=== PATIENT | female | born 1960 | race Asian ===

== ENCOUNTER 2017-03-19 00:45 | Observation (INO) | payer OTHER ==
[2017-03-19] MEDS ORDERED: NS 1,000 ML IV ONE (00:49)
[2017-03-19] MEDS ORDERED: ASPIRIN 81 MG CHEWABLE TAB PO ONE ×2 (00:49→01:10)
--- NOTE | 2017-03-19 01:02 | EDPHY ---
H & P HPI/ROS: HPI CHIEF COMPLAINT: Headache, dizziness, chest pain HISTORY OF PRESENT ILLNESS: This patient very pleasant 56-year-old female, she presents emergency room at 1 o'clock in the morning with chest discomfort. She states that today she had a very unusual day for her. She does suffer from migraine headaches around 1:00 p.m. she developed a headache frontal and bitemporal pulsating in nature very severe with associated dizziness room spinning. This is unlike her normal migraines. She had to leave work and go home and sleep. She woke up around 330 she went back to work and felt okay still have lingering headache. Dizziness resolved. Around 530 she went shopping with her son became very dizzy again with room spinning sensation with associated nausea. She had to go home. She tried to lay down she woke up around 930PM hungry and decided to eat something. She developed chest discomfort in the center of her chest felt like indigestion. Tells me felt like something was stuck in her chest. It is since resolved. It lasted for 30 minutes. She tells me she had belching after this. After returning home I decided come to the emergency room due to chest discomfort. With associated nausea without vomiting. She denies jaw pain or neck pain. Denies back pain, denies arm heaviness numbness or tingling. He still has a bifrontal temporal headache. Now improved. She tells me chest pain is resolved, dizziness has resolved. Denies shortness of breath or pleuritic pain. She denies any history of cardiac evaluation or previous workup. No history of coronary artery disease or stroke. Past Medical History: Migraine headaches, positional vertigo, hypertension Past Surgical History: No recent surgical history Social History: Denies daily use of drugs alcohol tobacco products, lives locally, employed Family History: Unknown Family history as she is adopted (son bicuspid Aortic valve) ROS REVIEW OF SYSTEMS: A comprehensive 10 point review of systems is otherwise negative aside from elements mentioned in the history of present illness. Exam Constitutional appears well nontoxic, triage nursing summary reviewed, vital signs reviewed, awake/alert. Eyes normal conjunctivae and sclera, EOMI, PERRLA. HENT normal inspection, atraumatic, moist mucus membranes, no epistaxis, neck supple/ no meningismus, no raccoon eyes. Respiratory clear to auscultation bilaterally, normal breath sounds, no respiratory distress, no wheezing. Cardiovascular rate normal, regular rhythm, no murmur, no edema, distal pulses normal. Gastrointestinal soft, non-tender, no rebound, no guarding, normal bowel sounds, no distension, no pulsatile mass. Genitourinary no CVA tenderness. Musculoskeletal no midline vertebral tenderness, full range of motion, no calf swelling, no tenderness of extremities, no meningismus, good pulses, neurovascularly intact. Skin pink, warm, & dry, no rash, skin atraumatic. Neurologic normal neurological exam, awake, alert and oriented x 3, AAOx3, moves all 4 extremities equally, motor intact, sensory intact, CN II-XII intact , normal cerebellar, normal vision, normal speech. Psychiatric normal mood/affect. Heme/Lymph/Immune no lymphadenopathy. 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 IV hydration. Re-evaluation: EKG time of EKG 1:19 a.m. sinus rhythm rate of 64 I do not appreciate acute ischemic change on this EKG. CT scan of the head without IV contrast. 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 The study was read by Dr. Levin I viewed the images myself on the PACS system. ED x-ray chest one view: Negative for acute cardiopulmonary disease. EKG interpretation by me on record in [employer] system. Impression time of EKG 3:22 a.m. this is a repeat EKG sinus rhythm rate of 62 T-wave flattening anterior leads. Otherwise unremarkable EKG no ST [place]. [id number]: This patient be admitted to the hospitalist service Dr. Montana who agrees to admit this patient. Reason for admission chest pain. Everything is reassuring here in emergency room she has 2 EKGs that are not acutely ischemic negative troponin, negative D-dimer unremarkable chest x-ray his CT scan that shows a remote infarct. However due to her age, chest pain, unknown family history, hypertension feel it is reasonable to do serial enzymes her EKGs and stress test. Dr. Montana has agreed to admit this patient. Patient updated agrees with this plan. Source: Patient Constitutional: Initial Vital Signs Temperature (C) 36.7 C 03/19/17 00:47 Heart Rate 62 03/19/17 00:47 Respiratory Rate 20 03/19/17 00:47 Blood Pressure 154/98 H 03/19/17 00:47 O2 Sat (%) 98 03/19/17 00:47 O2 Delivery Mode Room Air Allergies/Adverse Reactions: No Known Allergies Allergy (Unverified 03/19/17 00:47) Home Medications: Medication Instructions Recorded Metoprolol Tartrate 03/19/17 Medical Decision Making - Data Points Laboratory Results: Laboratory Results 03/19/17 01:05 03/19/17 01:05 03/19/17 03/19/17 03/19/17 01:05 01:05 01:05 WBC 6.94 10^3/uL 10^3/uL (3.80-9.50) RBC 4.77 10^6/uL 10^6/uL (4.18-5.33) Hgb 14.2 g/dL g/dL (12.6-16.3) Hct 42.0 % % (38.0-47.0) MCV 88.1 fL fL (81.5-99.8) MCH 29.8 pg pg (27.9-34.1) MCHC 33.8 g/dL g/dL (32.4-36.7) RDW 12.7 % % (11.5-15.2) Plt Count 211 10^3/uL 10^3/uL (150-400) MPV 10.5 fL fL (8.7-11.7) Neut % (Auto) 47.0 % % (39.3-74.2) Lymph % (Auto) 39.3 % % (15.0-45.0) Dawson % (Auto) 7.5 % % (4.5-13.0) Eos % (Auto) 5.2 % % (0.6-7.6) Baso % (Auto) 0.7 % % (0.3-1.7) Nucleat RBC Rel Count 0.0 % % (0.0-0.2) Absolute Neuts (auto) 3.26 10^3/uL 10^3/uL (1.70-6.50) Absolute Lymphs (auto) 2.73 10^3/uL 10^3/uL (1.00-3.00) Absolute Monos (auto) 0.52 10^3/uL 10^3/uL (0.30-0.80) Absolute Eos (auto) 0.36 10^3/uL 10^3/uL (0.03-0.40) Absolute Basos (auto) 0.05 10^3/uL 10^3/uL (0.02-0.10) Absolute Nucleated RBC 0.00 10^3/uL 10^3/uL (0-0.01) Immature Gran % 0.3 % % (0.0-1.1) Immature Gran # 0.02 10^3/uL 10^3/uL (0.00-0.10) PT 11.9 SEC L SEC (12.0-15.0) INR 0.89 (0.83-1.16) APTT 27.8 SEC SEC (23.0-38.0) D-Dimer < 0.27 ug/mLFEU ug/mLFEU (0.00-0.50) Sodium 143 mEq/L mEq/L (134-144) Potassium 3.9 mEq/L mEq/L (3.5-5.2) Chloride 106 mEq/L mEq/L (97-110) Carbon Dioxide 25 mEq/l mEq/l (22-31) Anion Gap 12 mEq/L mEq/L (8-16) BUN 15 mg/dL mg/dL (7-23) Creatinine 0.9 mg/dL mg/dL (0.6-1.0) Estimated GFR > 60 Glucose 115 mg/dL H mg/dL (70-100) Calcium 9.6 mg/dL mg/dL (8.5-10.4) Magnesium 2.2 mg/dL mg/dL (1.6-2.3) Total Bilirubin 0.6 mg/dL mg/dL (0.1-1.4) Conjugated Bilirubin 0.3 mg/dL mg/dL (0.0-0.5) Unconjugated Bilirubin 0.3 mg/dL mg/dL (0.0-1.1) AST 19 IU/L IU/L (14-46) ALT 36 IU/L IU/L (9-52) Alkaline Phosphatase 110 IU/L IU/L (38-126) Creatine Kinase 64 IU/L IU/L (0-156) CK-MB (CK-2) Fraction 0.43 ng/mL ng/mL (0-3.19) Troponin I < 0.012 ng/mL ng/mL (0-0.034) NT-Pro-B Natriuret Pep 68 pg/mL pg/mL (0-125) Total Protein 7.3 g/dL g/dL (6.3-8.2) Albumin 4.6 g/dL g/dL (3.5-5.0) Lipase 127.0 IU/L IU/L (23-300) Medications Given: Discontinued Medications Aspirin (Aspirin) 324 mg PO EDNOW ONE Stop: 03/19/17 00:50 Last Admin: 03/19/17 01:30 Dose: Not Given Aspirin (Aspirin) 81 mg PO EDNOW ONE Stop: 03/19/17 01:11 Last Admin: 03/19/17 01:10 Dose: 81 mg Sodium Chloride (Ns) 1,000 mls @ 0 mls/hr IV ONCE ONE; Wide Open PRN Reason: Protocol Stop: 03/19/17 00:50 Last Admin: 03/19/17 01:20 Dose: 1,000 mls Departure - Departure Disposition: [facility] Inpatient Acute Clinical Impression: Chest pain Qualifiers: Chest pain type: unspecified Qualified Code(s): R07.9 - Chest pain, unspecified Condition: Fair Referrals: Sarah Kemp MD [Primary Care Provider] - As per Instructions
[2017-03-19 01:15] LABS: % IMMATURE GRANULYOCYTES 0.3 % (0.0-1.1); ABSOLUTE IMMATURE GRANULOCYTES 0.02 10^3/uL (0.00-0.10); ADD DIFF? NO; ADD MORPH? NO; ADD SCAN? NO; ATYPICAL LYMPHOCYTE FLAG 10 (0-99); FRAGMENT RBC FLAG 0 (0-99); HEMOGLOBIN 14.2 g/dL (12.6-16.3); LEFT SHIFT FLG 0 (0-99); LIPEMIA HEMOLYSIS FLAG 90 (0-99); MEAN CELL HEMOGLOBIN 29.8 pg (27.9-34.1); MEAN CELL HEMOGLOBIN CONCENTR. 33.8 g/dL (32.4-36.7); MEAN CELL VOLUME 88.1 fL (81.5-99.8); MEAN PLATELET VOLUME 10.5 fL (8.7-11.7); PLATELET CLUMPS FLAG 0 (0-99); PLATELET COUNT 211 10^3/uL (150-400); RED BLOOD CELL COUNT 4.77 10^6/uL (4.18-5.33); RED CELL DISTRIBUTION WIDTH 12.7 % (11.5-15.2)
--- NOTE | 2017-03-19 01:21 | CPEKG ---
Heart Rate: 64 RR Interval: 938 P-R Interval: 188 QRSD Interval: 92 QT Interval: 448 QTC Interval: 463 P [place]: 50 QRS [place]: 55 T Wave [place]: 32 EKG Severity - NORMAL ECG - EKG Impression: SINUS RHYTHM Electronically Signed By: Edilson Montero 19-Mar-2017 06:48:04
[2017-03-19 01:23] LABS: INR 0.89 (0.83-1.16); PROTIME(PATIENT) 11.9 SEC (12.0-15.0)
[2017-03-19 01:24] LABS: APTT 27.8 SEC (23.0-38.0)
[2017-03-19 01:29] LABS: ALANINE AMINOTRANSFERASE 36 IU/L (9-52); ALBUMIN 4.6 g/dL (3.5-5.0); ALKALINE PHOSPHATASE 110 IU/L (38-126); ANION GAP 12 mEq/L (8-16); ASPARTATE AMINOTRANSFERASE 19 IU/L (14-46); BILIRUBIN,TOTAL 0.6 mg/dL (0.1-1.4); BILIRUBIN-CONJUGATED 0.3 mg/dL (0.0-0.5); BILIRUBIN-UNCONJUGATED 0.3 mg/dL (0.0-1.1); CALCIUM 9.6 mg/dL (8.5-10.4); CARBON DIOXIDE 25 mEq/l (22-31); CHLORIDE 106 mEq/L (97-110); CREATININE 0.9 mg/dL (0.6-1.0); GLOMERULAR FILTRATION RATE > 60; GLUCOSE 115 mg/dL (70-100); MAGNESIUM 2.2 mg/dL (1.6-2.3); POTASSIUM 3.9 mEq/L (3.5-5.2); SODIUM 143 mEq/L (134-144); TOTAL PROTEIN 7.3 g/dL (6.3-8.2)
[2017-03-19 01:41] LABS: TROPONIN I < 0.012 ng/mL (0-0.034)
[2017-03-19 02:07] LABS: CREATINE KINASE-MB FRACTION 0.43 ng/mL (0-3.19)
--- NOTE | 2017-03-19 03:23 | CPEKG ---
Heart Rate: 62 RR Interval: 968 P-R Interval: 172 QRSD Interval: 92 QT Interval: 464 QTC Interval: 472 P [place]: 23 QRS [place]: 59 T Wave [place]: 5 EKG Severity - BORDERLINE ECG - EKG Impression: SINUS RHYTHM EKG Impression: BORDERLINE T ABNORMALITIES, ANTERIOR LEADS Electronically Signed By: Edilson Montero 19-Mar-2017 06:48:04
[2017-03-19] MEDS ORDERED: ONDANSETRON 4 MG/2 ML VIAL IVP PRN (03:43)
[2017-03-19] MEDS ORDERED: ONDANSETRON DISINTEGRATING 4 MG TAB PO PRN (03:43)
[2017-03-19] MEDS ORDERED: ACETAMINOPHEN 325 MG TAB PO PRN (03:43)
[2017-03-19 04:51] VITALS: O2SAT 93
--- NOTE | 2017-03-19 04:54 | GHP ---
[f rep st] HISTORY AND PHYSICAL DATE OF ADMISSION: 03/19/2017 CHIEF COMPLAINT: Headache, dizziness, and chest pain. HISTORY OF PRESENT ILLNESS: Patient is a pleasant 56-year-old female with history of migraines, hypertension, who presented to the ER at 1 o'clock this morning with chest discomfort. She was at a business lunch this afternoon at 1: 30 and had a sudden wave of dizziness when leaving the restaurant. She wondered if this was the beginning of a migraine, but it was unusual because she did not have her normal aura. On her way home driving, she did get a headache and went home and slept until about 3 p.m., went back to work until 5: 30. She then went to the store and became very dizzy and felt as though she was spinning along with nausea. He drove her home, and she went back to bed until about 9. She awoke hungry and decided to eat some pasta. She subsequently developed indigestion and felt like food was stuck in her esophagus. There was no associated radiation to her arm, diaphoresis, nausea, or numbness. This lasted 30 minutes. She is feeling well now in the emergency room. She normally walks 3 times a week with her dog for 2 miles without chest pain or shortness of breath. Headache was different today in the fact that it was bitemporal, felt like a stress headache, where she normally has it in the back on one side. Denies any slurred speech or focal weakness. She is concerned. Her son was evaluated by Dr. Ochoa, was found to have a bicuspid or aortic valve, and she was recommended to have an echo as an outpatient. REVIEW OF SYSTEMS: I completed a 10-point review of systems, negative except as noted in HPI. PAST MEDICAL HISTORY: Hypertension, migraines with aura usually with a wavy pattern in her vision. PAST SURGICAL HISTORY: A laparotomy, partial oophorectomy. 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 Drinks socially. No tobacco or illicits. FAMILY HISTORY: She is adopted. ALLERGIES: None. HOME MEDICATIONS: Metoprolol. Previously on HCTZ. PHYSICAL EXAMINATION: VITAL SIGNS: Temperature 36.7, blood pressure 154/90, heart rate 62, respirations 20, 98% on room air. GENERAL: Patient is well appearing, sitting up in bed, in no acute distress. HEENT: PERRLA. EOMI. Oropharynx clear. Moist mucous membranes. CV: Regular rate and rhythm. No murmurs, gallops, or rubs. No lower extremity edema. LUNGS: Clear. No crackles. ABDOMEN: Soft, nontender, nondistended. Positive bowel sounds. : No Leslie. MUSCULOSKELETAL: 5/5 upper and lower extremity strength. NEURO: 2 through 12 intact. Normal sensation to touch. PSYCH: Alert and oriented x3. LABORATORY DATA: WBC 6.9, hemoglobin 14, hematocrit 42, platelets 211. INR 0.8. D-dimer less than 0.27. Sodium 143, potassium 3.9, chloride 106, anion gap 12, creatinine 0.9. LFTs within normal. Troponin less than 0.012. BNP is 68. Lipase 127. IMAGING DATA: 1. Chest x-ray: Personally reviewed by me. No effusion, edema, or opacity. 2. CT head: No acute bleed or mass effect. Shows old lacune infarct right basal ganglia. 3. EKG: Personally reviewed by me. Normal sinus rhythm. ST flattening lead III, aVF, and anterior leads. No old to compare. ASSESSMENT AND PLAN: 1. Atypical chest pressure: Differential includes indigestion, acute coronary syndrome, pulmonary embolism, musculoskeletal. She has personal risk factor of hypertension, does not know family history being adopted. D-dimer negative. Initial troponin negative with some ST flattening throughout leads. Monitor in the PCU on telemetry and repeat both of these. If negative, I feel it is reasonable for patient to follow up with PCP for an outpatient stress test. Check lipids and A1c. 2. Hypertension: On metoprolol. 3. 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 Goals for prevention include control of BP and lipids. Check A1c , lipids. Start a baby aspirin. She should follow up with her primary neurologist. 4. History of migraines: She is presenting today after headaches, which are not typical for her normal migraines, but there is no evidence of acute stroke on CT scan. No focal neuro deficits. 5. Diet: Regular. 6. Deep venous thrombosis prophylaxis: Low risk, ambulatory. DISPOSITION: Patient warrants observation admission given acute chest discomfort, concern for possible ACS. Will repeat EKG and troponin. /[id number]/MODL MTDD
--- NOTE | 2017-03-19 05:45 | CPEKG ---
Heart Rate: 60 RR Interval: 1000 P-R Interval: 200 QRSD Interval: 94 QT Interval: 464 QTC Interval: 464 P [place]: 60 QRS [place]: 56 T Wave [place]: 11 EKG Severity - NORMAL ECG - EKG Impression: SINUS RHYTHM Electronically Signed By: Edilson Montero 19-Mar-2017 06:48:04
[2017-03-19 06:44] LABS: CHOLESTEROL 182 mg/dL (140-220); CHOLESTEROL/HDL RATIO 3.71 RATIO (1.00-4.44); HIGH DENSITY LIPOPROTEIN 49 mg/dL (40-85); LDL/HDL RATIO 2.39 RATIO (1.00-3.22); LOW DENSITY LIPOPROTEIN 117 mg/dL (80-100); NON-HIGH DENSITY LIPOPROTEIN 133 mg/dL (90-129); TRIGLYCERIDE 81 mg/dL (35-135); VERY LOW DENSITY LIPOPROTEINS 16 mg/dL (8-25)
[2017-03-19 06:56] LABS: TROPONIN I < 0.012 ng/mL (0-0.034)
[2017-03-19] MEDS ORDERED: ASPIRIN 81 MG CHEWABLE TAB PO SCH (09:00)
[2017-03-19 11:47] VITALS: BP 129/81; PULSE 60; RESP 16; TEMP 98
== END 2017-03-19 13:19 | disposition home or self-care (01) ==
LOC: F2W 04:39
PROVIDERS: ADMIT Internal Medicine; ATTEND Internal Medicine
DX: R51 Headache (principal); R42 Dizziness and giddiness; R07.89 Other chest pain; I10 Essential (primary) hypertension
CPT/HCPCS: 70450; 71010; 93005; 96360; 99285; G0378

== ENCOUNTER → 2017-07-16 | Outpatient (CLI) | payer OTHER | LOC: CIMAGING 10:53 | PROVIDERS: ATTEND Obstetrics & Gynecology | DX: Z12.31 Encounter for screening mammogram for malignant neoplasm of breast (principal) | CPT/HCPCS: G0202 ==

== ENCOUNTER → 2017-07-24 | Outpatient (CLI) | payer OTHER | LOC: BRMIMAGING 13:12 | PROVIDERS: ATTEND Obstetrics & Gynecology | DX: Z13.820 Encounter for screening for osteoporosis (principal); M85.80 Other specified disorders of bone density and structure, unspecified site ==

== ENCOUNTER → 2018-05-26 | Outpatient (CLI) | payer OTHER | LOC: CIMAGING 16:43 | DX: R93.0 Abnormal findings on diagnostic imaging of skull and head, not elsewhere classified (principal) | CPT/HCPCS: 93880-PO ==

== ENCOUNTER → 2019-02-16 | Outpatient (CLI) | payer OTHER | LOC: CIMAGING 14:53 ==